=== PATIENT | female | born 1940 | race Caucasian/White ===

== ENCOUNTER 2025-07-15 09:59 | Outpatient (CLI) | payer MEDICARE | END 2025-07-15 10:00 | disposition home or self-care (01) | LOC: MADRAD 09:59 | PROVIDERS: ATTEND Registered Nurse | DX: J06.9 Acute upper respiratory infection, unspecified (principal); R05.9 Cough, unspecified; R09.89 Other specified symptoms and signs involving the circulatory and respiratory systems; K44.9 Diaphragmatic hernia without obstruction or gangrene | CPT/HCPCS: 71046 ==